=== PATIENT | female | born 1960 | race Caucasian/White ===

== ENCOUNTER 2017-10-17 07:19 | Outpatient (CLI) | payer OTHER | END 2017-10-17 07:25 | disposition home or self-care (01) | LOC: SONOGRAMA 07:19 | DX: E04.0 Nontoxic diffuse goiter (principal) ==

== ENCOUNTER 2019-11-09 15:39 | Outpatient (CLI) | payer OTHER ==
[~2019-11-09 15:39] MED LIST: PROTONIX20 MG PO; ZOVIRAX30 GM TOP
== END 2019-11-09 16:00 | disposition home or self-care (01) ==
LOC: OFIC 805 15:39
PROVIDERS: ATTEND Otolaryngology Otology & Neurotology
DX: J02.8 Acute pharyngitis due to other specified organisms (principal); K21.9 Gastro-esophageal reflux disease without esophagitis; K12.1 Other forms of stomatitis; B00.1 Herpesviral vesicular dermatitis

== ENCOUNTER 2020-07-08 05:30 | Day surgery (SDC) | payer OTHER ==
[~2020-07-08 05:30] MED LIST changes: +ABILIFY2 MG PO; +CLONAZEPAM1 MG PO; +LISINOPRIL20 MG PO; +TOPAMAX25 MG PO; +TRAZODONE HCL150 MG PO
[2020-07-08] MEDS ORDERED: ULTRACET PO (10:17)
[2020-07-08] MEDS ORDERED: MACROBID 100 M100 MG PO (10:17)
== END 2020-07-08 12:45 | disposition home or self-care (01) ==
LOC: CIR.AMB 05:30
PROVIDERS: ATTEND Obstetrics & Gynecology Gynecology
DX: N81.11 Cystocele, midline (principal); N81.5 Vaginal enterocele; Z20.822 Contact with and (suspected) exposure to COVID-19